=== PATIENT | female | born 1980 | race African-American/Black ===

== ENCOUNTER 2016-07-19 22:17 | Emergency (ER) | payer BC, MEDICAID ==
[~2016-07-19] VITALS: Ht 165.1 cm; Wt 97.0 kg
[2016-07-19 22:19] VITALS: BP 140/84; PULSE 60; RESP 16; TEMP 97.6; O2SAT 100
[2016-07-19] MEDS ORDERED: TETANUS/DIPHTHERIA TOXOID ADULT 0.5 ML VIAL IM ONE (22:30)
--- NOTE | 2016-07-19 22:41 | PD ---
HPI Chief Complaint: Laceration/Skin Injury Time Seen by Provider: 22:27 Travel History International Travel<30 days: No Contact w/Intl Traveler<30days: No Traveled to known affect area: No History of Present Illness HPI [id number] male presents for evaluation of laceration to the left thumb. It was sustained prior to arrival when the patient was cutting some cheese with a knife. She now has mild pain at the site of the laceration with associated mild bleeding. No numbness or tingling or range of motion limitation. Last tetanus vaccination unknown. No other complaints. PFSH Past Medical History Medical History: Denies Significant Hx Blood Disorders: No Cancer: No Cardiovascular Problems: No Diabetes: No Diminished Hearing: No Endocrine: Yes Genitourinary: No Hepatitis: No Hiatal Hernia: No Immune Disorder: No Musculoskeletal: No Neurologic: No Psychiatric: No Reproductive: Yes (FIBROIDS) Respiratory: No Thyroid Disease: Yes (DOESN'T TAKE MEDS ON A REGULAR BASIS) ?: Not Tubal Ligation: Yes Past Surgical History Abdominal Surgery: Yes (1979 LEFT ING HERNIA REPAIR) Body Medical Devices: NONE Endocrine Surgery: Yes (THYROIDECTOMY) Gynecologic Surgery: Yes (2006 TUBAL LIATION) Hysterectomy: Yes Other Surgery: Yes Social History Alcohol Use: Yes (OCCASIONAL SOCIAL) Tobacco Use: No Substance Use: No Allergies-Medications (Allergen,Severity, Reaction): Coded Allergies: No Known Allergies (Verified , 07/19/16) NKA? Reported Meds & Prescriptions Reported Meds & Active Scripts Active No Active Prescriptions or Reported Medications Review of Systems Musculoskeletal: No: Limited ROM Skin: Positive Other (positive for bleeding, laceration, pain) Physical Exam Narrative GENERAL: Well-developed well-nourished female in no acute distress SKIN: Warm and dry. 2.5 cm linear superficial laceration to the left thumb. Extremities: Skin as noted above. No tendon involvement. No visible tendon or bone. Distal sensation is intact in the medial and lateral aspect of the thumb. Capillary refill less than 2 seconds. Data Data Last Documented VS Vital Signs Date Time Temp Pulse Resp B/P Pulse Ox O2 Delivery O2 Flow Rate FiO2 07/19/16 22:19 97.6 60 16 140/84 100 Orders Tetanus/Diphtheria Tox Adult (Tetanus/Di (07/19/16 22:30) [facility] Medical Decision Making Medical Screen Exam Complete: Yes Emergency Medical Condition: Yes Medical Record Reviewed: Yes Differential Diagnosis Cutaneous laceration, abrasion, extensor tendon injury, open fracture Narrative Course The patient presents with a superficial linear well approximated laceration to the left thumb, this was repaired with Dermabond, she verbally consented. A finger splint will be applied. Tetanus status updated. She is stable for discharge. Procedures Procedure Narrative LACERATION LOCATION: Left thumb LENGTH: 0.5 cm NUMBER OF STITCHES/[place]: Dermabond REPAIR: The wound was copiously irrigated and explored without evidence of foreign body, tendon injury or neurovascular injury. The wound was closed using Dermabond. This was a single layer repair. A sterile dressing was applied. The patient was advised to keep the dressing clean and dry. Patient tolerated the procedure well. Diagnosis Primary Impression: Finger laceration Qualified Code: S61.219A - Finger laceration, initial encounter Additional Instructions: Keep the wound clean and dry. Do not put any creams or lotions on the wound. Minimize use of the injured finger to prevent the wound from opening up. The glue will flake off on its own in the next few weeks. Med/Other Pt SpecificInfo: Wound Care Scripts No Active Prescriptions or Reported Meds Disposition: 01 DISCHARGE HOME Condition: Stable Ambrocio Erickson Jul 19, 2016 22:41
== END 2016-07-19 23:11 | disposition home or self-care (01) ==
LOC: NETRI 22:17
DX: S61.012A Laceration without foreign body of left thumb without damage to nail, initial encounter (principal); E07.9 Disorder of thyroid, unspecified; Z23 Encounter for immunization; Z87.42 Personal history of other diseases of the female genital tract; W26.0XXA Contact with knife, initial encounter; Y93.G1 Activity, food preparation and clean up
CPT/HCPCS: 12001; 90471; 90714

== ENCOUNTER 2016-10-14 09:41 | Emergency (ER) | payer BC, MEDICAID ==
[~2016-10-14] VITALS: Ht 165.1 cm; Wt 95.0 kg
[2016-10-14 09:43] VITALS: BP 125/69; PULSE 62; RESP 16; TEMP 98.4; O2SAT 97
[2016-10-14] MEDS ORDERED: [UNRECOGNIZED DRUG - CODE] PO (09:56)
[2016-10-14] MEDS ORDERED: AUGM875T3 PO (09:56)
--- NOTE | 2016-10-14 09:56 | PD ---
HPI Chief Complaint: Cold / Flu Symptoms Time Seen by Provider: 09:49 Travel History International Travel<30 days: No Contact w/Intl Traveler<30days: No Traveled to known affect area: No History of Present Illness HPI 35-year-old female here with complaint of flulike symptoms. She's had 3 days of nasal congestion and sore throat. She notes a slight amount of pressure in the ears and occasional cough. Subjective fevers and chills. The thing that bothers her the most is a sore throat. She's been trying [id number] decongestions and cough syrup without much improvement in her symptoms. PFSH Past Medical History Blood Disorders: No Cancer: No Cardiovascular Problems: No Diabetes: No Diminished Hearing: No Endocrine: Yes Genitourinary: No Hepatitis: No Hiatal Hernia: No Immune Disorder: No Musculoskeletal: No Neurologic: No Psychiatric: No Reproductive: Yes (FIBROIDS) Respiratory: No Thyroid Disease: Yes (DOESN'T TAKE MEDS ON A REGULAR BASIS) ?: Not Tubal Ligation: Yes Past Surgical History Abdominal Surgery: Yes (1979 LEFT ING HERNIA REPAIR) Body Medical Devices: NONE Endocrine Surgery: Yes (THYROIDECTOMY) Gynecologic Surgery: Yes (2006 TUBAL LIATION) Hysterectomy: Yes Other Surgery: Yes Social History Alcohol Use: Yes (OCCASIONAL SOCIAL) Tobacco Use: No Substance Use: No Allergies-Medications (Allergen,Severity, Reaction): Coded Allergies: No Known Allergies (Verified , 10/14/16) NKA? Reported Meds & Prescriptions Reported Meds & Active Scripts Active No Active Prescriptions or Reported Medications Review of Systems Except as stated in HPI: all other systems reviewed are Neg Physical Exam Narrative GENERAL: Well-appearing female in no acute distress SKIN: Focused skin assessment warm/dry. HEAD: Normocephalic. EYES: Pupils equal and round. No scleral icterus. No injection or drainage. ENT: TMs clear bilaterally. Nasal mucosal injection/edema but no evidence of bleeding or nasal discharge. Posterior pharynx is erythematous with 2-3+ tonsils with palatal petechiae and exudate. Mucous membranes pink and moist. NECK: Supple without rigidity CARDIOVASCULAR: Regular rate and rhythm. RESPIRATORY: No accessory muscle use. Clear to auscultation. Breath sounds equal bilaterally. MUSCULOSKELETAL normal gait NEUROLOGICAL: Awake and alert. Normal speech. PSYCHIATRIC: Appropriate mood and affect; insight and judgment normal. Data Data Last Documented VS Vital Signs Date Time Temp Pulse Resp B/P Pulse Ox O2 Delivery O2 Flow Rate FiO2 10/14/16 09:43 98.4 62 16 125/69 97 MDM Medical Decision Making Medical Screen Exam Complete: Yes Emergency Medical Condition: Yes Medical Record Reviewed: Yes Differential Diagnosis 35-year-old female with flulike symptoms 3 days. Differential includes viral syndrome, influenza, sinusitis, pharyngitis viral versus bacterial, bronchitis and less likely pneumonia Narrative Course Overall symptoms likely to be viral in etiology but given the appearance of her pharynx with erythema, palatal petechiae and exudate we'll treat with antibiotics for possible bacterial source pharyngitis Diagnosis Primary Impression: Pharyngitis Qualified Code: J02.9 - Pharyngitis, unspecified etiology Referrals: Primary Care Physician Additional Instructions: Antibiotics and lozenges as prescribed. Med/Other Pt SpecificInfo: Prescription(s) given Scripts Benzocaine-Menthol Lozenge (Chloraseptic Max Sore Throat Lozenge)15-10 Mg Lozg1 Lozenge PO q2h PRN (SORE THROAT) #18 CONTAINER Prov:Edith Moore MD 10/14/16 Amoxicillin-Clavulanate (Augmentin)875-125 Mg Tab1 Tab PO BID #10 TAB Ref 0 Prov:Edith Moore MD 10/14/16 Disposition: 01 DISCHARGE HOME Condition: Stable Edith Moore MD Oct 14, 2016 09:56
== END 2016-10-14 10:14 | disposition home or self-care (01) ==
LOC: NEPD 09:41
DX: J02.9 Acute pharyngitis, unspecified (principal); R09.81 Nasal congestion; E07.9 Disorder of thyroid, unspecified
CPT/HCPCS: 99283